=== PATIENT | male | born 1975 | race African-American/Black ===

== ENCOUNTER 2017-04-19 11:54 | Emergency (ER) | payer SELFPAY ==
--- NOTE | 2017-04-19 12:16 | ER Document Report ---
ED Medical Screen (RME) - General Chief Complaint: Dizziness Stated Complaint: LIGHTHEADED,LEFT ARM/SHOULDER NUMB Time Seen by Provider: 04/19/17 12:14 Mode of Arrival: Ambulatory Information source: Patient TRAVEL OUTSIDE OF THE [place] IN LAST 30 DAYS: No - HPI Patient complains to provider of: dizziness, lightheadedness Onset: This morning - pt. states he drinks ETOH q day and had some dizziness and lightheadedness. Denies syncope, CP, SOB - Related Data Allergies/Adverse Reactions: No Known Allergies Allergy (Unverified 04/19/17 11:58) Physical Exam - Vital signs Vitals: Temp Pulse Resp BP Pulse Ox 98.4 F 110 H 20 184/102 H 96 04/19/17 12:10 04/19/17 12:10 04/19/17 12:10 04/19/17 12:10 04/19/17 12:10 Course - Vital Signs Vital signs: Temp Pulse Resp BP Pulse Ox 98.4 F 110 H 20 184/102 H 96 04/19/17 12:10 04/19/17 12:10 04/19/17 12:10 04/19/17 12:10 04/19/17 12:10
[2017-04-19 12:51] LABS: APPEARANCE,URINE CLEAR; BILIRUBIN,URINE NEGATIVE (NEGATIVE); GLUCOSE, URINE NEGATIVE (NEGATIVE); KETONES,URINE NEGATIVE (NEGATIVE); LEUKOCYTE ESTERASE,URINE NEGATIVE (NEGATIVE); NITRITE,URINE NEGATIVE (NEGATIVE); PROTEIN,URINE NEGATIVE (NEGATIVE)
[2017-04-19 12:54] LABS: RBC,URINE RARE /HPF; WBC,URINE RARE /HPF
[2017-04-19 13:04] LABS: ALANINE AMINOTRANSFERASE 49 U/L (21-72); ALBUMIN 4.8 g/dL (3.5-5.0); ALKALINE PHOSPHATASE 74 U/L (38-126); ANION GAP 16 (5-19); ASPARTATE AMINO TRANSFERASE 35 U/L (17-59); BILIRUBIN,DIRECT 0.5 mg/dL (0.0-0.4); BILIRUBIN,TOTAL 1.8 mg/dL (0.2-1.3); BLOOD UREA NITROGEN 15 mg/dL (7-20); CALCIUM 9.7 mg/dL (8.4-10.2); CARBON DIOXIDE 25 mmol/L (22-30); CHLORIDE 104 mmol/L (98-107); CREATINE KINASE 116 U/L (55-170); CREATININE RESULT 1.04 mg/dL (0.52-1.25); GLUCOSE 105 mg/dL (75-110); SODIUM 145.4 mmol/L (137-145); TOTAL PROTEIN 7.8 g/dL (6.3-8.2)
[2017-04-19 13:12] LABS: URINE BARBITURATES SCREEN NEGATIVE; URINE METHADONE SCREEN NEGATIVE; URINE OPIATES LOW NEGATIVE; URINE PHENCYCLIDINE SCREEN NEGATIVE
[2017-04-19 13:12] LABS: ALCOHOL < 10 mg/dL (NONE DETECTED)
[2017-04-19 13:13] LABS: CREATINE KINASE MB 1.61 ng/mL (<4.55)
[2017-04-19 13:15] LABS: TROPONIN I < 0.012 ng/mL
[2017-04-19 14:31] LABS: HGB HCT DIFFERENCE 2.3; MEAN CORPUSCULAR HEMOGLOBIN 33.3 pg (27.0-33.4); MEAN CORPUSCULAR HGB CONC 34.7 g/dL (32.0-36.0); MEAN CORPUSCULAR VOLUME 96 fl (80-97); RED BLOOD COUNT 6.05 10^6/uL (4.35-5.55); RED CELL DISTRIBUTION WIDTH 14.7 % (11.5-14.0); WHITE BLOOD COUNT 3.8 10^3/uL (4.0-10.5)
[2017-04-19 14:49] LABS: BASOPHILS % (MANUAL) 1 % (0-2); EOSINOPHILS % (MANUAL) 0 % (0-6); LYMPHOCYTES % (MANUAL) 16 % (13-45); TOTAL CELLS COUNTED 100
[2017-04-19 14:50] LABS: RBC MORPHOLOGY COMMENT NORMO-CYTIC/CHROMIC
[2017-04-19 14:52] LABS: HEMOGLOBIN 20.1 g/dL (13.5-17.0)
--- NOTE | 2017-04-19 15:11 | ER Document Report ---
ED General - General Chief Complaint: Dizziness Stated Complaint: LIGHTHEADED,LEFT ARM/SHOULDER NUMB Time Seen by Provider: 04/19/17 12:14 Mode of Arrival: Ambulatory Information source: Patient Notes: 42-year-old male history of chronic alcohol abuse presents with complaints of dizziness. Patient notes the dizziness occurred when he moved his head side to side very quickly. He notes he drinks excessively and states that whenever he drinks he becomes dizzy, when I asked what was different today that brought him in since he drinks daily he states he became anxious when his dizziness occurred. Patient denies any chest pain shortness of breath difficulty breathing TRAVEL OUTSIDE OF THE [place] IN LAST 30 DAYS: No - HPI Onset: Just prior to arrival Onset/Duration: Sudden Quality of pain: No pain Severity: Mild Pain Level: Denies Associated symptoms: Other Exacerbated by: Denies Relieved by: Denies Similar symptoms previously: No Recently seen / treated by doctor: No - Related Data Allergies/Adverse Reactions: No Known Allergies Allergy (Unverified 04/19/17 11:58) Home Medications: Current Home Medications No Home Medications 04/19/17 [History] Past Medical History - General Information source: Patient - Social History Smoking Status: Never Smoker Cigarette use (# per day): No Chew tobacco use (# tins/day): No Smoking Education Provided: No Frequency of alcohol use: Heavy Drug Abuse: None Family History: Reviewed & Not Pertinent Patient has suicidal ideation: No Patient has homicidal ideation: No - Past Medical History Cardiac Medical History: Reports: Hx Hypertension - no medications at this time Renal/ Medical History: Denies: Hx Peritoneal Dialysis Review of Systems - Review of Systems Notes: REVIEW OF SYSTEMS: CONSTITUTIONAL : Denies fever, chills, or sweats. Denies recent illness. EENT: Denies eye, ear, throat, or mouth pain or symptoms. Denies nasal or sinus congestion or discharge. Denies throat, tongue, or mouth swelling or difficulty swallowing. CARDIOVASCULAR: Denies chest pain. Denies palpitations or racing or irregular heart beat. Denies ankle edema. RESPIRATORY: Denies cough, cold, or chest congestion. Denies shortness of breath, difficulty breathing, or wheezing. GASTROINTESTINAL: Denies abdominal pain or distention. Denies nausea, vomiting , or diarrhea. Denies blood in vomitus, stools, or per rectum. Denies black, tarry stools. Denies constipation. GENITOURINARY: Denies difficulty urinating, painful urination, burning, frequency, blood in urine, or discharge. MUSCULOSKELETAL: Denies back or neck pain or stiffness. Denies joint pain or swelling. SKIN: Denies rash, lesions or sores. HEMATOLOGIC : Denies easy bruising or bleeding. LYMPHATIC: Denies swollen, enlarged glands. NEUROLOGICAL: Admits to dizziness PSYCHIATRIC: Denies anxiety or stress. Denies depression, suicidal ideation, or homicidal ideation. ALL OTHER SYSTEMS REVIEWED AND NEGATIVE. Dictation was performed using [email or web address] voice recognition software PHYSICAL EXAMINATION: GENERAL: Well-appearing, well-nourished and in no acute distress. HEAD: Atraumatic, normocephalic. EYES: Pupils equal round and reactive to light, extraocular movements intact, sclera anicteric, conjunctiva are normal. ENT: Nares patent, oropharynx clear without exudates. Moist mucous membranes. NECK: Normal range of motion, supple without lymphadenopathy LUNGS: Breath sounds clear to auscultation bilaterally and equal. No wheezes rales or rhonchi. HEART: Regular rate and rhythm without murmurs ABDOMEN: Soft, nontender, nondistended abdomen. No guarding, no rebound. No masses appreciated. Musculoskeletal: Normal range of motion, no pitting or edema. No cyanosis. NEUROLOGICAL: Cranial nerves grossly intact. Normal speech, normal gait. Normal sensory, motor exams PSYCH: Normal mood, normal affect. SKIN: Warm, Dry, normal turgor, no rashes or lesions noted. Physical Exam - Vital signs Vitals: Temp Pulse Resp BP Pulse Ox 98.4 F 110 H 20 184/102 H 96 04/19/17 12:10 04/19/17 12:10 04/19/17 12:10 04/19/17 12:10 04/19/17 12:10 Course - Re-evaluation Re-evalutation: 04/19/17 16:32 Patient's blood work notes decreased as well as significant hemoglobin increase. Patient overall looks well and is insistent that he will leave immediately. She denies any chest pain neurological symptoms or any other concerns at this time. He also notes that he had stated that he had numbness in his hands but that he was doing push-ups and that this occurs after he does push-ups. Patient denies wanting to have any further evaluation states he is ready to go home. Patient's evaluation was benign lab work otherwise will require further reevaluation by hematology Patient states he understands and wishes to go home immediately After performing a Medical Screening Examination, I estimate there is LOW risk for RUPTURED ESOPHAGUS, PNEUMOTHORAX, PULMONARY EMBOLISM, ACUTE CORONARY SYNDROME, OR THORACIC AORTIC DISSECTION, thus I consider the discharge disposition reasonable. I have reevaluated this patient multiple times and no significant life threatening changes are noted. The patient and I have discussed the diagnosis and risks, and we agree with discharging home with close follow-up. We also discussed returning to the Emergency Department immediately if new or worsening symptoms occur. We have discussed the symptoms which are most concerning (e.g., bloody sputum, worsening pain or shortness of breath) that necessitate immediate return. - Vital Signs Vital signs: Temp Pulse Resp BP Pulse Ox 98.4 F 101 H 18 157/111 H 97 04/19/17 12:10 04/19/17 15:21 04/19/17 15:21 04/19/17 15:21 04/19/17 15:21 - Laboratory Result Diagrams: 04/19/17 13:48 04/19/17 12:21 Laboratory results interpreted by me: 04/19/17 04/19/17 04/19/17 12:21 12:22 13:48 WBC 3.8 L RBC 6.05 H Hgb 20.1 H* Hct 58.0 H RDW 14.7 H Monocytes % (Manual) 14 H Sodium 145.4 H Total Bilirubin 1.8 H Direct Bilirubin 0.5 H Urine Urobilinogen 2.0 H Urine Ascorbic Acid 40 H - EKG Interpretation by Me EKG shows normal: Sinus rhythm, [place], Intervals, QRS Complexes Discharge - Discharge Clinical Impression: Dizziness, Elevated hemoglobin Condition: Stable Disposition: HOME, SELF-CARE Instructions: Dizziness ([facility]) Referrals: ALEKSANDAR BERNARD MD [ACTIVE STAFF] - Follow up tomorrow
[2017-04-19 15:22] VITALS: BP 157/111
--- NOTE | 2017-04-19 17:35 | EKG REPORT ---
SEVERITY:- ABNORMAL ECG - SINUS TACHYCARDIA PROBABLE LEFT ATRIAL ABNORMALITY LEFT AXIS DEVIATION CONSIDER ANTERIOR INFARCT : Confirmed by: Moisés Burroughs MD 19-Apr-2017 17:35:05
== END 2017-04-19 15:22 | disposition home or self-care (01) ==
LOC: ER 11:54
DX: D58.2 Other hemoglobinopathies (principal); R42 Dizziness and giddiness; M79.602 Pain in left arm; R20.0 Anesthesia of skin
CPT/HCPCS: 36415; 80053; 80307; 81001; 82550; 82553; 84484; 85025; 93005; 93010; 99284

== ENCOUNTER → 2017-05-04 | Outpatient (CLI) | payer SELFPAY ==
--- NOTE | 2017-05-04 13:32 | RADIOLOGY REPORT (SQ) ---
EXAM DESCRIPTION: CHEST PA/LATERAL COMPLETED DATE/TIME: 05/04/2017 12:15 pm REASON FOR STUDY: OTHER HEMOGLOBINOPATHIES COMPARISON: None. EXAM PARAMETERS: NUMBER OF VIEWS: two views TECHNIQUE: Digital Frontal and Lateral radiographic views of the chest acquired. RADIATION DOSE: NA LIMITATIONS: none FINDINGS: LUNGS AND PLEURA: No opacities, masses or pneumothorax. No pleural effusion. MEDIASTINUM AND HILAR STRUCTURES: No masses or contour abnormalities. HEART AND VASCULAR STRUCTURES: Heart normal size. No evidence for failure. BONES: No acute findings. HARDWARE: None in the chest. OTHER: No other significant finding. IMPRESSION: NO SIGNIFICANT RADIOGRAPHIC FINDING IN THE CHEST. TECHNICAL DOCUMENTATION: JOB ID: [id number] [employer] All Rights Reserved
== END ==
LOC: OD 11:43
PROVIDERS: ATTEND Internal Medicine Medical Oncology
DX: D58.2 Other hemoglobinopathies (principal)
CPT/HCPCS: 71020